=== PATIENT | male | born 1950 | race Caucasian/White ===

== ENCOUNTER 2016-07-26 12:24 | Emergency (ER) | payer OTHER ==
[2016-07-26] MEDS ORDERED: DILAUDID 1 MG/ML AMP ONE (13:56)
[2016-07-26] MEDS ORDERED: ONDANSETRON 4 MG VIAL ONE (13:57)
== END 2016-07-26 16:34 | disposition home or self-care (01) ==
LOC: ER 12:24
DX: I82.402 Acute embolism and thrombosis of unspecified deep veins of left lower extremity (principal); Z79.899 Other long term (current) drug therapy; F17.210 Nicotine dependence, cigarettes, uncomplicated
CPT/HCPCS: 36415; 80048; 85025; 85610; 85730; 93971; 96374; 96375; 99284; J1170; J2405